=== PATIENT | male | born 1965 | race Caucasian/White ===

== ENCOUNTER 2022-07-01 10:23 | Outpatient (CLI) | payer OTHER, SELFPAY ==
[2022-07-01 20:40] LABS: Hemoglobin A1C 5.7 % (<5.7)
[2022-07-01 20:45] LABS: Free T4 Free Thyroxine 1.31 ng/mL (0.78-2.19); Prostate Specific Antigen 0.8 ng/mL (< OR = 4.0)
[2022-07-04 20:38] LABS: Triiodothyronine T3 Free 3.2 pg/mL (2.3-4.2)
== END 2022-07-01 10:24 | disposition home or self-care (01) ==
LOC: ANHGOSHLAB 10:27
PROVIDERS: PCP Internal Medicine; Visit Provider Internal Medicine
DX: E03.9 Hypothyroidism, unspecified (principal); R73.09 Other abnormal glucose; Z12.5 Encounter for screening for malignant neoplasm of prostate
CPT/HCPCS: 36415; 83036; 84153; 84439; 84443; 84481; G0103

== ENCOUNTER 2022-12-20 09:25 | Outpatient (CLI) | payer OTHER, SELFPAY ==
[2022-12-24 19:04] LABS: Triiodothyronine T3 Free 3.5 pg/mL (2.3-4.2)
== END 2022-12-20 09:26 | disposition home or self-care (01) ==
LOC: ANHGOSHLAB 09:27
PROVIDERS: PCP Internal Medicine; Visit Provider Clinical Nurse Specialist
DX: E03.9 Hypothyroidism, unspecified (principal)
CPT/HCPCS: 36415; 84439; 84443; 84481

== ENCOUNTER 2022-12-24 11:47 | Outpatient (CLI) | payer OTHER, SELFPAY ==
[2022-12-24 19:41] LABS: Basophils Absolute Auto 0.1 K/mm3 (0.0-0.1); Basophils Percent Auto 1.2 % (0.2-1.2); Eosinophils Absolute Auto 0.1 K/mm3 (0-0.3); Eosinophils Percent Auto 2.3 % (0-4.4); Hematocrit 49.6 % (42.0-52.0); Hemoglobin 16.4 g/dL (14.0-18.0); Immature Granulocyte Absolute 0.01 K/mm3 (0.00-0.031); Immature Granulocyte Percent A 0.2 % (0-0.5); Lymphocytes Absolute Auto 1.19 K/mm3 (0.9-3.2); Mean Corpuscular HGB Conc 33.1 g/dl (32-36); Mean Corpuscular Hemoglobin 30.9 pg (26-34); Mean Corpuscular Volume 93.6 fl (80-100); Mean Platelet Volume 11.1 fl (7.4-10.4); Monocytes Absolute Auto 0.6 K/mm3 (0.1-0.6); Monocytes Percent Auto 10.2 % (2.6-8.5); Neutrophils Absolute Auto 3.7 K/mm3 (1.3-6.7); Neutrophils Percent Auto 65.1 % (45.5-73.1); Platelet Count Result 191 k/mm3 (150-375); Red Cell Distribution Width 13.8 % (11.5-14.5); White Blood Count 5.7 K/mm3 (4.5-10.0)
[2022-12-24 19:47] LABS: Alanine Aminotransferase 44 U/L (6-50); Albumin Level 4.3 g/dL (3.5-5.1); Alkaline Phosphatase 52 U/L (38-126); Anion Gap 4 mmol/L (8-16); Aspartate Amino Transferase 39 U/L (17-59); Bilirubin,Total 0.4 mg/dL (0.2-1.3); Blood Urea Nitrogen 8 mg/dL (9-20); Calcium 9.1 mg/dL (8.4-10.2); Carbon Dioxide 33 mmol/L (22-30); Chloride 104 mmol/L (98-107); Estimated Glomerular Filt Rate > 60; Glucose 91 mg/dL (65-110); Magnesium 2.3 mg/dL (1.6-2.3); Potassium 3.9 mmol/L (3.4-5.0); Sodium 141 mmol/L (137-145)
[2022-12-24 20:11] LABS: Prostate Specific Antigen 0.8 ng/mL (< OR = 4.0)
[2022-12-24 20:29] LABS: Appearance Urine Clear (Clear); Bilirubin Urine Negative (Negative); Blood Urine Negative (Negative); Color Urine Yellow (Yellow); Glucose Urine UA Negative (Negative); Ketones Urine Negative (Negative); Leukocyte Esterase Ur Negative LEU/UL (Negative); Nitrate Urine Negative (Negative); Protein Urine Negative (Negative); Specific Grav Ur 1.015 (1.001-1.035); Urobilinogen Urine 0.2 mg/dL (<2.0)
[2022-12-24 20:30] LABS: Bacteria Urine Trace /hpf; WBC Urine 0-3 /hpf
[2022-12-24 20:33] LABS: Add Urine Microscopic? YES
[2022-12-24 20:47] LABS: Folic Acid 14.8 ng/mL (2.76->20)
[2022-12-24 20:50] LABS: Hemoglobin A1C 5.1 % (<5.7)
== END 2022-12-24 11:48 | disposition home or self-care (01) ==
LOC: ANHGOSHLAB 11:48
PROVIDERS: PCP Internal Medicine; Visit Provider Clinical Nurse Specialist
DX: R73.09 Other abnormal glucose (principal); Z12.5 Encounter for screening for malignant neoplasm of prostate; R42 Dizziness and giddiness; R35.0 Frequency of micturition; E06.3 Autoimmune thyroiditis; R73.02 Impaired glucose tolerance (oral); R25.2 Cramp and spasm; E55.9 Vitamin D deficiency, unspecified; I10 Essential (primary) hypertension
CPT/HCPCS: 36415; 80053; 81001; 82306; 82607; 82746; 83036; 83735; 84153; 85025; G0103

== ENCOUNTER 2023-01-17 09:14 | Outpatient (CLI) | payer OTHER, SELFPAY ==
[2023-01-17 18:37] LABS: Appearance Urine Clear (Clear); Bilirubin Urine Negative (Negative); Blood Urine Negative (Negative); Color Urine Yellow (Yellow); Glucose Urine UA Negative (Negative); Ketones Urine Negative (Negative); Leukocyte Esterase Ur Negative LEU/UL (Negative); Nitrate Urine Negative (Negative); Protein Urine Negative (Negative); Specific Grav Ur 1.013 (1.001-1.035); Urobilinogen Urine 0.2 mg/dL (<2.0); pH Urine 6.5 (5.0-9.0)
[2023-01-17 18:57] LABS: Add Urine Microscopic? NO
[2023-01-17 18:59] LABS: Cholesterol 116 mg/dL (0-200); HDL Direct 32 mg/dL; Triglycerides 158 mg/dL (<150)
[2023-01-17 19:10] LABS: LDL Cholesterol Direct 55 mg/dL
== END 2023-01-17 09:15 | disposition home or self-care (01) ==
LOC: ANHGOSHLAB 09:15
PROVIDERS: PCP Internal Medicine; Visit Provider Clinical Nurse Specialist
DX: E78.2 Mixed hyperlipidemia (principal); R31.29 Other microscopic hematuria
CPT/HCPCS: 36415; 80061; 81003

== ENCOUNTER 2023-01-21 14:10 | Outpatient (CLI) | payer OTHER, SELFPAY ==
[2023-01-21 20:01] LABS: Appearance Urine Clear (Clear); Bilirubin Urine Negative (Negative); Blood Urine Trace-intact (Negative); Color Urine Yellow (Yellow); Glucose Urine UA Negative (Negative); Ketones Urine Negative (Negative); Leukocyte Esterase Ur Negative LEU/UL (NEGATIVE); Nitrate Urine Negative (Negative); Protein Urine Negative (Negative); Urobilinogen Urine 0.2 mg/dL (<2.0)
[2023-01-21 20:04] LABS: Bacteria Urine Trace /hpf; WBC Urine 0-3 /hpf (0-3)
[2023-01-21 20:24] LABS: Add Urine Microscopic? YES
== END 2023-01-21 14:11 | disposition home or self-care (01) ==
LOC: ANHGOSHLAB 14:11
PROVIDERS: PCP Internal Medicine; Visit Provider Internal Medicine
DX: R31.29 Other microscopic hematuria (principal)
CPT/HCPCS: 81001

== ENCOUNTER 2023-07-16 12:07 | Outpatient (CLI) | payer OTHER, SELFPAY ==
--- NOTE | ~2023-07-16 | XR_ITS ---
EXAMINATION: XR chest 2V 07/16/2023 12:23 INDICATION: Cough and congestion PROCEDURE: 2 view chest COMPARISON: 07/10/2016 FINDINGS: The lungs are clear. The cardiomediastinal silhouette is within normal limits. There are no pleural effusions. There is no pneumothorax suspected. IMPRESSION: 1: NO ACUTE CARDIOPULMONARY DISEASE. Reviewed, dictated and finalized at location B.
== END 2023-07-16 12:08 | disposition home or self-care (01) ==
LOC: ANHIMG 12:11
PROVIDERS: PCP Internal Medicine; Visit Provider Clinical Nurse Specialist
DX: R05.9 Cough, unspecified (principal)
CPT/HCPCS: 71046

== ENCOUNTER 2024-01-20 12:30 | Outpatient (RCR) | payer OTHER, SELFPAY ==
--- NOTE | 2023-12-17 11:27 | OPREHPOC ---
Outpatient Therapy Plan of Care This is a Multidisciplinary Plan of Care that may contain components documented by all disciplines (PT, OT, and ST.) PT Problem 1 PT Problem #1 Knowledge Deficit PT Goal 1 Goal 1. Patient will perform independent HEP Target Visit 9 PT Problem 2 PT Problem #2 Pain PT Goal 1 Goal 1. Patient able to sleep with pain no higher than 2/10 2. Patient able to do all ADL's with pain no higher than 1/10 Target Visit 9 PT Problem 3 PT Problem #3 Impaired Range of Motion PT Goal 1 Goal 1. Improve shoulder active range of motion to be equal to left in order to perform dressing and reaching tasks Target Visit 9 PT Problem 4 PT Problem #4 Impaired Strength PT Goal 1 Goal 1. Improve strength to 5/5 and pain free in all planes in order to perform ADL's Target Visit 9
--- NOTE | 2023-12-17 11:27 | PTOPEVAL1 ---
Assessment and note entered by Katherine Myles DPT Evaluation Information Assessment Status Evaluation Subjective Information Pt reports R shoulder pain for several weeks now. Highest 10/10 and lowest 6/10. Pain with reaching behind him to dress, reaching overhead, turning the wheel while driving and laying on it to sleep. Is doing his normal activities but with pain. Reports his pain has been anterior, lateral, and posterior. Had x-rays yesterday. Previous AC surgery approximately 30 years ago. Pt is retired. Prior to 3 weeks ago he had no pain or limitation with ADLs. 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 Patient goal: pain relief Reported Pain Level Pain Score 8: Self Report Assessment PT Clinical Summary The patient is presenting to skilled therapy with a several week history of R shoulder pain. He presents with decreased range of motion and strength in all planes which are contributing to his pain and difficulty with dressing, driving, and reaching tasks. He will benefit from therapy to address these impairments in order to reduce pain and return to prior level of function. Plan of Care Interventions Electrical Stimulation,Hot Pack/Cold Pack,Manual Therapy,Neuro Re-education,Patient/Caregiver Education,Therapeutic Activities,Therapeutic Exercise PT Services Indicated Yes Treatment Frequency and 2 times a week for 8 visits Duration These treatments will address the objective and functional deficits as defined above. The patient will be advanced safely and appropriately in order for the patient to progress towards his/her prior level of function. Additional exercises will be introduced and as well as a comprehensive home exercise program upon discharge, if needed, ?to ensure carryover of functional gains achieved in the clinic. This treatment plan has been reviewed and agreement upon by the patient.
--- NOTE | 2024-01-09 15:27 | PCPTNOTE ---
Department called and cancelled patient appointment 01/08/24 due to staffing shortage. Pt's POC will resume upon next treatment.
--- NOTE | 2024-01-20 13:11 | PTOPDC ---
Assessment and note entered by Alana Martel, PT Assessment Status Discharge Subjective Information Self-perceived improvement: 90% Still has some pain, but is sleeping at night now. States now the pain can be muscular now. At first it felt like it was all crowded and bunched . States feels like everything is now starting to lay back where it's supposed to be. Is not burning and throbbing anymore just a tinge at times. Can reach across body now without pain. Reported Pain Level Pain Score 2: Self Report Assessment PT Clinical Summary Pt has attended therapy consistently for right shoulder pain. Today he rates himself at 90% improvement overall, and has met all therapy goals . Pt has been educated on finalized HEP and when to return to therapy if needed in the future. Thus patient is being discharged for having completed plan of care. Plan of Care PT Services Indicated No
== END 2024-01-29 10:41 | disposition home or self-care (01) ==
LOC: ANHHIPT 12:30
PROVIDERS: PCP Internal Medicine; Visit Provider Clinical Nurse Specialist
DX: M25.511 Pain in right shoulder (principal)
CPT/HCPCS: 97014; 97035; 97110; 97112; 97140; 97161; 97750; G0283

== ENCOUNTER 2024-03-23 08:37 | Outpatient (CLI) | payer OTHER, SELFPAY ==
[2024-03-23 19:24] LABS: Basophils Absolute Auto 0.1 K/mm3 (0.0-0.1); Basophils Percent Auto 0.8 % (0.2-1.2); Eosinophils Absolute Auto 0.1 K/mm3 (0-0.3); Eosinophils Percent Auto 1.3 % (0-4.4); Hematocrit 52.3 % (42.0-52.0); Hemoglobin 17.2 g/dL (14.0-18.0); Immature Granulocyte Absolute 0.02 K/mm3 (0.00-0.031); Immature Granulocyte Percent A 0.3 % (0-0.5); Lymphocytes Absolute Auto 1.91 K/mm3 (0.9-3.2); Lymphocytes Percent Auto 26.8 % (18.3-44.2); Mean Corpuscular HGB Conc 32.9 g/dl (32-36); Mean Corpuscular Hemoglobin 31.4 pg (26-34); Mean Corpuscular Volume 95.4 fl (80-100); Mean Platelet Volume 10.6 fl (7.4-10.4); Monocytes Absolute Auto 0.7 K/mm3 (0.1-0.6); Monocytes Percent Auto 9.2 % (2.6-8.5); Neutrophils Absolute Auto 4.4 K/mm3 (1.3-6.7); Neutrophils Percent Auto 61.6 % (45.5-73.1); Platelet Count Result 214 k/mm3 (150-375); Red Blood Count 5.48 M/mm3 (4.6-6.20); Red Cell Distribution Width 13.4 % (11.5-14.5); White Blood Count 7.1 K/mm3 (4.5-10.0)
[2024-03-23 19:39] LABS: Alanine Aminotransferase 36 U/L (6-50); Albumin Level 4.8 g/dL (3.5-5.1); Alkaline Phosphatase 52 U/L (38-126); Anion Gap 7 mmol/L (4-12); Aspartate Amino Transferase 40 U/L (17-59); Bilirubin,Total 0.9 mg/dL (0.2-1.3); Blood Urea Nitrogen 12 mg/dL (9-20); Calcium 10.1 mg/dL (8.4-10.2); Carbon Dioxide 29 mmol/L (22-30); Chloride 104 mmol/L (98-107); Cholesterol 120 mg/dL (0-200); Estimated Glomerular Filt Rate > 60; Glucose 104 mg/dL (65-110); HDL Direct 42 mg/dL; Potassium 4.2 mmol/L (3.4-5.0); Sodium 140 mmol/L (137-145); Triglycerides 110 mg/dL (<150)
[2024-03-23 19:49] LABS: LDL Cholesterol Direct 65 mg/dL
[2024-03-23 20:09] LABS: Hemoglobin A1C 5.6 % (<5.7)
== END 2024-03-23 08:38 | disposition home or self-care (01) ==
LOC: ANHGOSHLAB 08:40
PROVIDERS: PCP Internal Medicine; Visit Provider Clinical Nurse Specialist
DX: R73.09 Other abnormal glucose (principal); E06.3 Autoimmune thyroiditis; Z13.228 Encounter for screening for other metabolic disorders; Z12.5 Encounter for screening for malignant neoplasm of prostate; E78.2 Mixed hyperlipidemia
CPT/HCPCS: 36415; 80053; 80061; 83036; 84153; 84443; 85025; G0103

== ENCOUNTER 2024-03-25 14:11 | Outpatient (CLI) | payer OTHER, SELFPAY ==
--- NOTE | ~2024-03-25 | US_ITS ---
US scrotum doppler INDICATION: Right testicular pain TECHNIQUE: Testicular sonogram utilizing grayscale and color Doppler FINDINGS: The testes are normal in size and appearance. No focal lesions are seen. The right testes measures for 0.1 x 2.1 x 3.1 cm centimeters, and the left testis measures 4.1 x 2 x 2.7 cm cm. There is normal vascular flow to both testes. There is a small hypoechoic epididymal head mass measuring 1.2 cm which may represent a complicated c yst. There is no varicocele or hydrocele. IMPRESSION: 1. Complex hypoechoic 1.2 cm right epididymal mass. Consider adenomatoid tumor, sperm granuloma, lei omyoma and fibrous pseudotumor. Reviewed, dictated and finalized at location B. IMPRESSION: 1. Complex hypoechoic 1.2 cm right epididymal mass. Consider adenomatoid tumor , sperm granuloma, leiomyoma and fibrous pseudotumor.
== END 2024-03-25 14:12 | disposition home or self-care (01) ==
LOC: ANHIMG 14:13
PROVIDERS: PCP Internal Medicine; Visit Provider Nurse Practitioner
DX: N50.89 Other specified disorders of the male genital organs (principal); N50.811 Right testicular pain
CPT/HCPCS: 76870; 93976

== ENCOUNTER 2024-08-17 10:38 | Outpatient (CLI) | payer OTHER, SELFPAY ==
[2024-08-17 13:31] LABS: Basophils Percent Auto 0.6 % (0.2-1.2); Eosinophils Absolute Auto 0.1 K/mm3 (0-0.3); Eosinophils Percent Auto 1.1 % (0-4.4); Hematocrit 48.9 % (42.0-52.0); Hemoglobin 16.3 g/dL (14.0-18.0); Immature Granulocyte Absolute 0.02 K/mm3 (0.00-0.031); Immature Granulocyte Percent A 0.3 % (0-0.5); Lymphocytes Absolute Auto 1.31 K/mm3 (0.9-3.2); Lymphocytes Percent Auto 20.9 % (18.3-44.2); Mean Corpuscular HGB Conc 33.3 g/dl (32-36); Mean Corpuscular Hemoglobin 31.7 pg (26-34); Mean Corpuscular Volume 95.1 fl (80-100); Mean Platelet Volume 10.7 fl (7.4-10.4); Monocytes Absolute Auto 0.6 K/mm3 (0.1-0.6); Monocytes Percent Auto 8.9 % (2.6-8.5); Neutrophils Absolute Auto 4.3 K/mm3 (1.3-6.7); Neutrophils Percent Auto 68.2 % (45.5-73.1); Platelet Count Result 190 k/mm3 (150-375); Red Blood Count 5.14 M/mm3 (4.6-6.20); Red Cell Distribution Width 13.5 % (11.5-14.5); White Blood Count 6.3 K/mm3 (4.5-10.0)
[2024-08-17 15:03] LABS: Vitamin D 25 Hydroxy 25.9 ng/mL
[2024-08-17 15:11] LABS: Iron 158 ug/dL (49-181)
[2024-08-17 15:19] LABS: Percent Iron Saturation 47 % (20-50)
[2024-08-17 15:20] LABS: Anion Gap 5 mmol/L (4-12); Blood Urea Nitrogen 13 mg/dL (9-20); Calcium 9.3 mg/dL (8.4-10.2); Carbon Dioxide 33 mmol/L (22-30); Chloride 94 mmol/L (98-107); Estimated Glomerular Filt Rate > 60; Glucose 101 mg/dL (65-110); Sodium 132 mmol/L (137-145)
[2024-08-17 15:42] LABS: Folic Acid 8.8 ng/mL (2.76->20)
[2024-08-17 18:04] LABS: Potassium 4.9 mmol/L (3.4-5.0)
[2024-08-18 17:04] LABS: Prostate Specific Antigen 0.8 ng/mL (< OR = 4.0)
== END 2024-08-17 10:39 | disposition home or self-care (01) ==
LOC: ANHGOSHLAB 10:39
PROVIDERS: PCP Internal Medicine; Visit Provider Clinical Nurse Specialist
DX: E06.3 Autoimmune thyroiditis (principal); E55.9 Vitamin D deficiency, unspecified; R74.8 Abnormal levels of other serum enzymes; R25.2 Cramp and spasm; N50.811 Right testicular pain; N50.89 Other specified disorders of the male genital organs
CPT/HCPCS: 36415; 80048; 82306; 82607; 82728; 82746; 83540; 83550; 84153; 84443; 85025

== ENCOUNTER 2025-01-21 11:36 | Outpatient (CLI) | payer OTHER, SELFPAY ==
[2025-01-21 18:41] LABS: Anion Gap 5 mmol/L (4-12); Blood Urea Nitrogen 13 mg/dL (9-20); Carbon Dioxide 32 mmol/L (22-30); Chloride 103 mmol/L (98-107); Cholesterol 105 mg/dL (0-200); Estimated Glomerular Filt Rate > 60; Glucose 92 mg/dL (65-110); HDL Direct 35 mg/dL; Potassium 4.4 mmol/L (3.4-5.0); Sodium 140 mmol/L (137-145); Triglycerides 75 mg/dL (<150)
[2025-01-21 18:53] LABS: LDL Cholesterol Direct 49 mg/dL
[2025-01-21 18:55] LABS: Free T3 3.42 pg/mL (2.45-5.93); Free T4 Free Thyroxine 1.25 ng/dL (0.78-2.19)
[2025-01-21 19:34] LABS: Hemoglobin A1C 5.7 % (<5.7)
== END 2025-01-21 11:37 | disposition home or self-care (01) ==
LOC: ANHGOSHLAB 11:37
PROVIDERS: PCP Internal Medicine; Visit Provider Clinical Nurse Specialist
DX: E03.9 Hypothyroidism, unspecified (principal); E55.9 Vitamin D deficiency, unspecified; I10 Essential (primary) hypertension; R73.01 Impaired fasting glucose; R25.2 Cramp and spasm; R42 Dizziness and giddiness
CPT/HCPCS: 36415; 80048; 80061; 82306; 82607; 83036; 84439; 84443; 84481

== ENCOUNTER 2025-08-19 11:37 | Outpatient (CLI) | payer OTHER, SELFPAY ==
[2025-08-19 18:07] LABS: Hematocrit 46.3 % (42.0-52.0); Hemoglobin 15.5 g/dL (14.0-18.0); Immature Granulocyte Percent A 0.3 % (0-0.5); Lymphocytes Absolute Auto 1.93 K/mm3 (0.9-3.2); Mean Corpuscular HGB Conc 33.5 g/dl (32-36); Mean Corpuscular Hemoglobin 31.5 pg (26-34); Mean Corpuscular Volume 94.1 fl (80-100); Nucleated Red Blood Cells Absolute Auto 0.000 K/mm3 (0.0-0.012); Nucleated Red Blood Cells Perc 0.0 % (0.0-0.2); Platelet Count Result 190 k/mm3 (150-375); Red Blood Count 4.92 M/mm3 (4.6-6.20); White Blood Count 6.3 K/mm3 (4.5-10.0)
[2025-08-19 18:23] LABS: Alanine Aminotransferase 35 U/L (6-50); Albumin Level 4.2 g/dL (3.5-5.1); Alkaline Phosphatase 50 U/L (38-126); Anion Gap 5 mmol/L (4-12); Aspartate Amino Transferase 53 U/L (17-59); Bilirubin,Total 0.4 mg/dL (0.2-1.3); Blood Urea Nitrogen 14 mg/dL (9-20); Calcium 8.9 mg/dL (8.4-10.2); Carbon Dioxide 28 mmol/L (22-30); Chloride 104 mmol/L (98-107); Estimated Glomerular Filt Rate > 60; Glucose 101 mg/dL (65-110); Potassium 4.4 mmol/L (3.4-5.0); Sodium 137 mmol/L (137-145); Total Protein 7.5 g/dL (6.3-8.2)
[2025-08-19 18:52] LABS: Free T3 3.58 pg/mL (2.45-5.93); Free T4 Free Thyroxine 1.01 ng/dL (0.78-2.19)
[2025-08-19 19:00] LABS: Prostate Specific Antigen 0.8 ng/mL (< OR = 4.0); Thyroid Stimulating Hormone 3.760 uIU/mL (0.465-4.680)
[2025-08-19 19:19] LABS: Vitamin B12 804.0 pg/mL (239-931)
== END 2025-08-19 11:38 | disposition home or self-care (01) ==
LOC: ANHGOSHLAB 11:38
PROVIDERS: PCP Internal Medicine; Visit Provider Clinical Nurse Specialist
DX: Z12.5 Encounter for screening for malignant neoplasm of prostate (principal); I10 Essential (primary) hypertension; R73.01 Impaired fasting glucose; E03.9 Hypothyroidism, unspecified; E06.3 Autoimmune thyroiditis; E53.8 Deficiency of other specified B group vitamins
CPT/HCPCS: 36415; 80053; 82607; 84153; 84439; 84443; 84481; 85025; G0103